=== PATIENT | male | born 1990 | race Hispanic/Latino ===

== ENCOUNTER 2019-05-03 15:50 | Emergency (ER) | payer OTHER ==
[2019-05-03] MEDS ORDERED: BUPIVACAINE 0.5% PF 10 ML VIAL ONE (16:48)
[2019-05-03] MEDS ORDERED: LIDOCAINE 1% MPF 5 ML VIAL ONE (16:49)
--- NOTE | 2019-05-03 17:46 | EDPHYS ---
Physician Documentation [facility] Name: Babar Cueto Age: 28 yrs Sex: Male : 1990 Arrival Date: 05/03/2019 Time: 15:54 Bed 11 Private MD: Unknown, Unknown ED Physician Daniel Hare HPI: 05/03 17:45 This 28 yrs old Male presents to ER via Ambulatory with complaints of Finger kb Injury. 17:45 The patient or guardian reports a laceration, irregular, 2 cm(s). The complaints affect kb the palmar aspect of distal phalanx of right index finger. Context: The problem was sustained at work, resulted from cut on slicer. Onset: The symptoms/episode began/occurred today, at 13:00. Modifying factors: The symptoms are alleviated by nothing, the symptoms are aggravated by nothing. Associated signs and symptoms: The patient has no apparent associated signs or symptoms. Severity of symptoms: At their worst the symptoms were mild, in the emergency department the symptoms are unchanged. The patient has not experienced similar symptoms in the past. The patient has not recently seen a physician. Historical: - Allergies: 15:58 No Known Allergies; la1 - PMHx: 15:58 None; la1 - Immunization history:: Adult Immunizations up to date. - Social history:: Smoking status: Patient/guardian denies using tobacco. - Ebola Screening: : No symptoms or risks identified at this time. ROS: 17:12 Constitutional: Negative for fever, chills, and weight loss, Cardiovascular: Negative kb for chest pain, palpitations, and edema, Respiratory: Negative for shortness of breath, cough, wheezing, and pleuritic chest pain, Abdomen/GI: Negative for abdominal pain, nausea, vomiting, diarrhea, and constipation, Back: Negative for injury and pain, Neuro: Negative for headache, weakness, numbness, tingling, and seizure. 17:12 MS/extremity: Positive for laceration, of the palmar aspect of distal phalanx of right index finger. Exam: 17:42 Constitutional: This is a well developed, well nourished patient who is awake, alert, kb and in no acute distress. Head/Face: Normocephalic, atraumatic. Neck: Trachea midline, no thyromegaly or masses palpated, and no cervical lymphadenopathy. Supple, full range of motion without nuchal rigidity, or vertebral point tenderness. No Meningismus. Chest/axilla: Normal chest wall appearance and motion. Nontender with no deformity. No lesions are appreciated. Cardiovascular: Regular rate and rhythm with a normal S1 and S2. No gallops, murmurs, or rubs. Normal PMI, no JVD. No pulse deficits. Respiratory: Lungs have equal breath sounds bilaterally, clear to auscultation and percussion. No rales, rhonchi or wheezes noted. No increased work of breathing, no retractions or nasal flaring. Abdomen/GI: Soft, non-tender, with normal bowel sounds. No distension or tympany. No guarding or rebound. No evidence of tenderness throughout. MS/ Extremity: Pulses equal, no cyanosis. Neurovascular intact. Full, normal range of motion. Neuro: Awake and alert, GCS 15, oriented to person, place, time, and situation. Cranial nerves II-XII grossly intact. Motor strength 5/5 in all extremities. Sensory grossly intact. Cerebellar exam normal. Normal gait. 17:42 Skin: injury, laceration(s), the wound is approximately 2 cm(s), of the palmar aspect of distal phalanx of right index finger, that can be described as clean, no foreign body, irregular, without bleeding. Vital Signs: 15:58 BP 142 / 74; Pulse 76; Resp 16; Temp 98.3; Pulse Ox 100% on R/A; la1 Procedures: 16:59 Nerve block: (digital) of palmar aspect of proxima; phalanx of right index finger kb Medication: Lidocaine 1% without epinephrine Marcaine 0.5%, Amount: 5 mls were injected, Effect: the patient has resolution of the pain, Set up for procedure. Performed by Jesusita HURLEY Patient tolerated well. Laceration: 17:43 Wound Repair of 2cm ( 0.8in ) subcutaneous laceration to palmar aspect of distal kb phalanx of right index finger. Irregularly shaped.. Skin/tissue flap noted.. Distal neuro/vascular/tendon intact. Anesthesia: Digital block administered with 1% lidocaine. Wound prep: Extensive cleansing with hibiclenz by me, Wound irrigation with saline by me, soaked finger in 50/50 mixture of betadine and NS for 15 minutes prior to cleaning and sutures. Skin closed with 9 5-0 Prolene using simple sutures and sterile technique. Dressed with tube gauze. Patient tolerated well. MDM: 16:43 Patient medically screened. kb 17:10 Data reviewed: vital signs, nurses notes. Data interpreted: Pulse oximetry: on room air kb is 100 %. Interpretation: normal. 17:44 Counseling: I had a detailed discussion with the patient and/or guardian regarding: the kb historical points, exam findings, and any diagnostic results supporting the discharge/admit diagnosis, the need for outpatient follow up, a family practitioner, to return to the emergency department if symptoms worsen or persist or if there are any questions or concerns that arise at home. 05/03 16:48 Order name: Prolene, Sutures; Complete Time: 17:14 kb 05/03 16:48 Order name: Dressing - Wound; Complete Time: 17:14 kb 05/03 16:48 Order name: Gloves, Sterile; Complete Time: 17:14 kb 05/03 16:48 Order name: Setup Suture Tray; Complete Time: 17:14 kb Administered Medications: 16:59 Not Given (Patient Refused): Tetanus-Diphtheria Toxoid Adult 0.5 ml IM once kb 17:00 Drug: Lidocaine (1 %) 1 vials {Note: Administered by Jesusita Arriaga NP.} Volume: 5 ss ml; Route: Infiltration; 17:00 Drug: Bupivacaine (0.5 %) 1 vials {Note: administered by Jesusita Arriaga NP.} Volume: ss 10 ml; Route: Infiltration; Disposition: 18:45 Co-signature as Attending Physician, Daniel Hare MD. rn Disposition: 05/03/19 17:45 Discharged to Home. Impression: Laceration without foreign body of right index finger without damage to nail. - Condition is Stable. - Discharge Instructions: Laceration Care, Adult, [id number]. - Medication Reconciliation Form, Thank You Letter, Antibiotic Education, Prescription Opioid Use form. - Follow up: Emergency Department; When: As needed; Reason: Worsening of condition. Follow up: Private Physician; When: 2 - 3 days; Reason: Recheck today's complaints, Continuance of care, Re-evaluation by your physician. Signatures: Jesusita Arriaga, NELLY-C NELLY-Daniel Martinez MD MD rn Smirch, Shelby, RN RN Sai Muro RN RN la1 Corrections: (The following items were deleted from the chart) 18:03 17:45 05/03/2019 17:45 Discharged to Home. Impression: Laceration without foreign body ss of right index finger without damage to nail. Condition is Stable. Forms are Medication Reconciliation Form, Thank You Letter, Antibiotic Education, Prescription Opioid Use. Follow up: Emergency Department; When: As needed; Reason: Worsening of condition. Follow up: Private Physician; When: 2 - 3 days; Reason: Recheck today's complaints, Continuance of care, Re-evaluation by your physician. kb
--- NOTE | 2019-05-03 17:46 | ER ---
Nurse's Notes [facility] Name: Babar Cueto Age: 28 yrs Sex: Male : 1990 Arrival Date: 05/03/2019 Time: 15:54 Bed 11 Private MD: Unknown, Unknown Diagnosis: Laceration without foreign body of right index finger without damage to nail Presentation: 05/03 15:57 Presenting complaint: Patient states: i cut my right index finger with a deli meat la1 slicer at around 1300 and the bleeding stopped but I think it needs to be closed. Transition of care: patient was not received from another setting of care. Onset of symptoms was May 03, 2019. Risk Assessment: Do you want to hurt yourself or someone else? Patient reports no desire to harm self or others. Initial Sepsis Screen: Does the patient meet any 2 criteria? No. Patient's initial sepsis screen is negative. Does the patient have a suspected source of infection? No. Patient's initial sepsis screen is negative. Care prior to arrival: None. 15:57 Method Of Arrival: Ambulatory la1 15:57 Acuity: JANIYA 4 la1 Historical: - Allergies: 15:58 No Known Allergies; la1 - PMHx: 15:58 None; la1 - Immunization history:: Adult Immunizations up to date. - Social history:: Smoking status: Patient/guardian denies using tobacco. - Ebola Screening: : No symptoms or risks identified at this time. Screenin:15 Abuse screen: Denies threats or abuse. Denies injuries from another. Nutritional ss screening: No deficits noted. Tuberculosis screening: Never had TB. Fall Risk None identified. Assessment: 16:40 General: Appears in no apparent distress. comfortable, Behavior is calm, cooperative. ss Pain: Complains of pain in palmar aspect of distal phalanx of right index finger and palmar aspect of proxima; phalanx of right index finger. Neuro: Level of Consciousness is awake, alert, obeys commands, Oriented to person, place, time, situation. Cardiovascular: Capillary refill < 3 seconds is brisk in bilateral fingers. Respiratory: Airway is patent Respiratory effort is even, unlabored, Respiratory pattern is regular, symmetrical. GI: Patient currently denies nausea. EENT: Oral mucosa is moist. Derm: Skin is intact, is healthy with good turgor, Skin is pink, warm \T\ dry. normal. Musculoskeletal: Circulation, motion, and sensation intact. Range of motion: intact in all extremities, Swelling absent. Injury Description: Avulsion sustained to palmar aspect of distal phalanx of right index finger and palmar aspect of proxima; phalanx of right index finger is partial was sustained 4-6 hours ago. 17:05 Reassessment: Affected digit soaking in Betadine and NS solution. Vital Signs: 15:58 BP 142 / 74; Pulse 76; Resp 16; Temp 98.3; Pulse Ox 100% on R/A; la1 ED Course: 15:54 Patient arrived in ED. ag5 15:54 Unknown, Unknown is Private Physician. ag5 15:57 Triage completed. la1 15:58 Arm band placed on left wrist. la1 16:43 Jesusita Arriaga FNP-C is [facility]. kb 16:43 Daniel Hare MD is Attending Physician. kb 17:05 Patient has correct armband on for positive identification. Bed in low position. Call ss light in reach. 17:14 Christina Chand, RN is Primary Nurse. ss 18:00 Wound care: located on palmar aspect of proxima; phalanx of right index finger and ss palmar aspect of distal phalanx of right index finger was dressed with Neosporin, 4X4s. 18:01 Assist provider with laceration repair on palmar aspect of distal phalanx of right ss index finger and palmar aspect of proxima; phalanx of right index finger that was between 2.6 to 7.5 cm. Patient did not have IV access during this emergency room visit. Administered Medications: 16:59 Not Given (Patient Refused): Tetanus-Diphtheria Toxoid Adult 0.5 ml IM once kb 17:00 Drug: Lidocaine (1 %) 1 vials {Note: Administered by Jesusita Arriaga NP.} Volume: 5 ss ml; Route: Infiltration; 17:00 Drug: Bupivacaine (0.5 %) 1 vials {Note: administered by Jesusita Arriaga NP.} Volume: ss 10 ml; Route: Infiltration; Outcome: 17:45 Discharge ordered by . kb 18:01 Discharged to home ambulatory. ss 18:01 Condition: good 18:01 Discharge instructions given to patient, Instructed on discharge instructions, follow up and referral plans. wound care, Demonstrated understanding of instructions, follow-up care, wound care. 18:03 Patient left the ED. ss Signatures: Jesusita Arriaga, NELLY-C NELLY-Christina Salmeron RN RN Sai Muro RN RN la1 Kayla Mosley ag5
[2019-05-03 19:17] VITALS: BP 142/74; TEMP 98.3; O2SAT 100
== END 2019-05-03 18:03 | disposition home or self-care (01) ==
LOC: ER 15:50
PROC: 0JQJ0ZZ Repair Right Hand Subcutaneous Tissue and Fascia, Open Approach (ICD-10-PCS; principal; 2019-05-03)
DX: S61.210A Laceration without foreign body of right index finger without damage to nail, initial encounter (principal); W45.8XXA Other foreign body or object entering through skin, initial encounter; Y93.89 Activity, other specified; Y92.89 Other specified places as the place of occurrence of the external cause; Y99.8 Other external cause status; Z23 Encounter for immunization
CPT/HCPCS: 64450; 99283

== ENCOUNTER 2019-05-14 15:01 | Emergency (ER) | payer OTHER ==
--- NOTE | 2019-05-14 15:40 | ER ---
Nurse's Notes [facility] Name: Babar Cueto Age: 28 yrs Sex: Male : 1990 Arrival Date: 05/14/2019 Time: 15:03 Bed 23 Private MD: Diagnosis: Encounter for removal of sutures Presentation: 05/14 15:12 Presenting complaint: Patient states: need for suture removal. Sutures noted to right aa5 index finger. Transition of care: patient was not received from another setting of care. Onset of symptoms was May 14, 2019. Risk Assessment: Do you want to hurt yourself or someone else? Patient reports no desire to harm self or others. Initial Sepsis Screen: Does the patient meet any 2 criteria? No. Patient's initial sepsis screen is negative. Does the patient have a suspected source of infection? No. Patient's initial sepsis screen is negative. Care prior to arrival: None. 15:12 Acuity: JANIYA 4 aa5 15:12 Method Of Arrival: Ambulatory aa5 Triage Assessment: 15:36 General: Behavior is calm, cooperative. mg2 Historical: - Allergies: 15:13 No Known Allergies; aa5 - PMHx: 15:13 None; aa5 - PSHx: 15:13 None; aa5 - Immunization history:: Adult Immunizations up to date. - Social history:: Smoking status: Patient uses tobacco products, smokes one-half pack cigarettes per day. - Ebola Screening: : No symptoms or risks identified at this time. Screenin:35 Abuse screen: Denies threats or abuse. Denies injuries from another. Nutritional mg2 screening: No deficits noted. Tuberculosis screening: No symptoms or risk factors identified. Fall Risk None identified. Assessment: 15:35 General: Appears in no apparent distress. comfortable. Pain: Denies pain. Derm: post mg2 sutured wound in the right index finger. Vital Signs: 15:13 BP 116 / 77; Pulse 70; Resp 16 S; Temp 97.8(TE); Pulse Ox 96% on R/A; Weight 88.45 kg aa5 (R); Height 5 ft. 10 in. (177.80 cm) (R); Pain 0/10; 15:13 Body Mass Index 27.98 (88.45 kg, 177.80 cm) aa5 ED Course: 15:03 Patient arrived in ED. mr 15:12 Arm band placed on. aa5 15:13 Triage completed. aa5 15:15 Jimmy Guerra NP is PHCP. pm1 15:16 Micheal Marquez MD is Attending Physician. pm1 15:27 Jakob Valiente, RN is Primary Nurse. mg2 15:35 Call light in reach. Verbal reassurance given. Cardiac monitoring not applicable on jp3 this patient. 15:39 suture removal done by the provider- 9 stitches removed from the right index finger. mg2 Patient did not have IV access during this emergency room visit. Administered Medications: No medications were administered Outcome: 15:39 Discharge ordered by MD. pm1 15:48 Discharged to home ambulatory. mg2 15:48 Condition: stable 15:48 Discharge instructions given to patient, Instructed on discharge instructions, follow up and referral plans. Demonstrated understanding of instructions, follow-up care. 15:50 Patient left the ED. iw Signatures: Claudia Cruz mr Jenifer Samuel RN RN iw Kate Velázquez RN RN aa5 Jimmy Guerra NP INTERVENTIONAL RADIOLOGIST pm1 Jakob Valiente, RN RN mg2 Clarence Young jp3 Corrections: (The following items were deleted from the chart) 15:40 15:35 No provider procedures requiring assistance completed. jp3 mg2
--- NOTE | 2019-05-14 15:40 | EDPHYS ---
Physician Documentation [facility] Name: Babar Cueto Age: 28 yrs Sex: Male : 1990 Arrival Date: 05/14/2019 Time: 15:03 Bed 23 Private MD: ED Physician Micheal Marquez HPI: 05/14 15:40 This 28 yrs old Male presents to ER via Ambulatory with complaints of Suture pm1 Removal. 15:40 The patient has sutures on the palmar aspect of distal phalanx of right index finger. pm1 Previous treatment: The patient was initially treated 14 day(s) ago, the care was rendered at [facility], Treatment type: The patient's original treatment included sutures, Outpatient prescription(s): The patient was given prescription(s) for nothing. Sutures/little progress: The patient has no c/o's. The wound is well-healing with no redness, swelling, discharge, or dehiscence reported. The patient has not experienced similar symptoms in the past. Laceration with meat pumper at work. Historical: - Allergies: 15:13 No Known Allergies; aa5 - PMHx: 15:13 None; aa5 - PSHx: 15:13 None; aa5 - Immunization history:: Adult Immunizations up to date. - Social history:: Smoking status: Patient uses tobacco products, smokes one-half pack cigarettes per day. - Ebola Screening: : No symptoms or risks identified at this time. ROS: 15:40 Constitutional: Negative for fever, chills, and weight loss. pm1 15:40 MS/Extremity: Negative for injury and deformity, Skin: Negative for injury, rash, and discoloration, Neuro: Negative for headache, weakness, numbness, tingling, and seizure. 15:40 All other systems are negative. Exam: 15:40 Constitutional: This is a well developed, well nourished patient who is awake, alert, pm1 and in no acute distress. Head/Face: Normocephalic, atraumatic. 15:40 Cardiovascular: Regular rate and rhythm with a normal S1 and S2. No gallops, murmurs, or rubs. Normal PMI, no JVD. No pulse deficits. Respiratory: Lungs have equal breath sounds bilaterally, clear to auscultation and percussion. No rales, rhonchi or wheezes noted. No increased work of breathing, no retractions or nasal flaring. 15:40 Skin: Appearance: normal except for affected area, abscess, not appreciated, cellulitis, is not appreciated, Wound recheck: Suture laceration closure: the wound is healing well, the edges are well approximated, no evidence of dehiscence, no drainage, no erythema, no swelling. 15:40 Neuro: Orientation: is normal, Motor: is normal, moves all fours. Vital Signs: 15:13 BP 116 / 77; Pulse 70; Resp 16 S; Temp 97.8(TE); Pulse Ox 96% on R/A; Weight 88.45 kg aa5 (R); Height 5 ft. 10 in. (177.80 cm) (R); Pain 0/10; 15:13 Body Mass Index 27.98 (88.45 kg, 177.80 cm) aa5 Procedures: 15:40 Suture/Staple removal: Removed 9 sutures, from palmar aspect of distal phalanx of right pm1 index finger, site appears well healed, Flap of tissue and skin sutured to finger with large area of hematoma, dressed with band aid, Patient tolerated well. MDM: 15:32 Patient medically screened. pm1 15:39 Data reviewed: vital signs. Counseling: I had a detailed discussion with the patient pm1 and/or guardian regarding: the historical points, exam findings, and any diagnostic results supporting the discharge/admit diagnosis, to return to the emergency department if symptoms worsen or persist or if there are any questions or concerns that arise at home. Administered Medications: No medications were administered Disposition: 17:01 Co-signature as Attending Physician, Micheal Marquez MD I agree with the assessment and kdr plan of care. Disposition: 05/14/19 15:39 Discharged to Home. Impression: Encounter for removal of sutures. - Condition is Stable. - Discharge Instructions: Suture Removal, Care After. - Medication Reconciliation Form, Thank You Letter, Antibiotic Education, Prescription Opioid Use form. - Follow up: Emergency Department; When: As needed; Reason: Worsening of condition. Follow up: Private Physician; When: As needed; Reason: Wound Recheck, Recheck today's complaints, Continuance of care, Re-evaluation by your physician. - Problem is new. - Symptoms have improved. Signatures: Micheal Marquez MD MD kdr Jenifer Samuel RN RN iw Kate Velázquez RN RN aa5 Jimmy Guerra NP [employer] pm1 Corrections: (The following items were deleted from the chart) 15:50 15:39 05/14/2019 15:39 Discharged to Home. Impression: Encounter for removal of iw sutures. Condition is Stable. Forms are Medication Reconciliation Form, Thank You Letter, Antibiotic Education, Prescription Opioid Use. Follow up: Emergency Department; When: As needed; Reason: Worsening of condition. Follow up: Private Physician; When: As needed; Reason: Wound Recheck, Recheck today's complaints, Continuance of care, Re-evaluation by your physician. Problem is new. Symptoms have improved. pm1
[2019-05-14 16:47] VITALS: BP 116/77; TEMP 97.8; O2SAT 96
== END 2019-05-14 15:50 | disposition home or self-care (01) ==
LOC: ER 15:01
DX: Z48.02 Encounter for removal of sutures (principal)
CPT/HCPCS: 99281